=== PATIENT | male | born 1995 | race Caucasian/White ===

== ENCOUNTER 2019-06-04 09:25 | Inpatient (IN) | payer MEDICARE ==
[~2019-06-04] VITALS: Ht 167.6 cm; Wt 95.5 kg
[2019-06-04] MEDS ORDERED: ZOLOFT25 MG PO (09:31)
[2019-06-04] MEDS ORDERED: LITHIUM CARBON150 MG PO (09:31)
[2019-06-04] MEDS ORDERED: SEROQUEL300 MG PO (09:31)
[2019-06-04] MEDS ORDERED: LAMICTAL100 MG PO (09:32)
[2019-06-04] MEDS ORDERED: CATAPRES0.1 MG PO (09:32)
[2019-06-04] MEDS ORDERED: TRAZODONE HCL150 MG PO ×2 (09:32→16:12)
[2019-06-04 10:30] VITALS: BP 126/74
[2019-06-04 10:39] LABS: INR 1.01 (0.85-1.17); PROTIME 12.8 SECONDS (11.6-15.0)
[2019-06-04 10:40] LABS: APTT 30.3 SECONDS (22.8-39.4); CALC OSMOLALITY 279 mosm/kg (275-300); CALCIUM 9.7 mg/dL (8.5-10.1); CARBON DIOXIDE 30.5 mmol/L (21.0-32.0); CHLORIDE - SERUM 105 mmol/L (98-107); CREATININE - SERUM 1.1 mg/dL (0.6-1.3); GLUCOSE 109 mg/dL (74-106); POTASSIUM - SERUM 4.4 mmol/L (3.5-5.1); SODIUM 140 mmol/L (136-145); UREA NITROGEN 12 mg/dL (7-18); eGFR NON AFRICAN AMERICAN 87 mL/min (90-120)
[2019-06-04 10:57] LABS: ALBUMIN 3.7 g/dL (3.4-5.0); ALKALINE PHOSPHATASE 87 U/L (46-116); ALT (SGPT) 63 U/L (10-68); BILIRUBIN - TOTAL 0.62 mg/dL (0.2-1.3); CKMB 3.3 U/L (0.0-3.6); CREATINE KINASE 116 UL (21-232); PRO BNP 571 pg/mL (0-125); PROTEIN - SERUM 7.5 g/dL (6.4-8.2); TROPONIN-I < 0.017 ng/mL (0.000-0.060)
[2019-06-04 11:12] LABS: BASOPHILS 0.1 % (0-2); EOSINOPHILS 1.9 % (0-7); HEMATOCRIT 47.7 % (42.0-54.0); HEMOGLOBIN 15.1 g/dL (13.5-17.5); IMMATURE GRANULOCYTES 0.3 % (0-5); LYMPHOCYTES 12.6 % (15-50); MCH 30.9 pg (26.0-34.0); MCHC 31.7 g/dL (31.0-37.0); MCV 97.7 fL (80.0-100.0); MEAN PLATELET VOLUME 12.3 fL (7.4-10.4); MONOCYTES 6.9 % (2-11); NEUTROPHILS 78.2 % (40-80); PLATELET COUNT 185 10x3/uL (130-400); RBC 4.88 10x6/uL (4.20-6.10); WBC 12.7 10x3/uL (4.8-10.8)
[2019-06-04 11:30] VITALS: BP 128/74
[2019-06-04 13:00] VITALS: BP 128/72
--- NOTE | 2019-06-04 13:39 | NUR ---
SANDWICH TRAY PROVIDED.
--- NOTE | 2019-06-04 14:18 | MORECARE ---
CASE MANAGEMENT DISCHARGE SUMMARY PATIENT: RASHAWN EATON UNIT: [id number] ADM DATE: 06/04/19 AGE: 24 : 95 SEX: M ROOM/BED: D.2237 AUTHOR: EDWIN SOLARES PHYSICIAN: REFERRING PHYSICIAN: CAL MORGAN MD DATE OF SERVICE: 06/04/19 Discharge Plan Patient Name: RASHAWN EATON Facility: [facility]:[place] : 1995 Planned Disposition: Home Anticipated Discharge Date: 06/08/19 Discharge Date: Expected LOS: 4 Initial Reviewer: [email or web address] Initial Review Date: 06/04/2019 Generated: 06/04/19 3:18 pm DCPIA - Discharge Planning Initial Assessment Updated by [email or web address]: Danica Alaniz on 06/04/19 2:16 pm * Is the patient Alert and Oriented? Yes * How many steps to enter\exit or inside your home? * PCP Dr. Cheek @ [facility] * Pharmacy [facility] on [address] * Preadmission Environment Home with Family * ADLs Partial Dependent * Partial ADLs (Assistance needed) Bathing Medication Management * Equipment None * List name and contact numbers for known caregivers / representatives who currently or will assist patient after discharge: Romy Escobar - [facility] - [phone] * Verbal permission to speak to the caregivers and representatives has been obtained from the patient. Yes * Community resources currently utilized Other * Please name any agencies selected above. [facility] - Day treatment M-F 8-2 * Additional services required to return to the preadmission environment? No * Can the patient safely return to the preadmission environment? Yes * Has this patient been hospitalized within the prior 30 days at any hospital? No Patient Name: RASHAWN EATON Page [id number] at 1418 All edits/amendments must be made on the electronic document DICTATION DATE: 06/04/191417 PODIATRY PROFESSOR: JOANIE 06/04/191417 RPT#: [id number] DC DATE: STATUS: ADM IN [facility] [address] [place] [address] END OF REPORT
--- NOTE | 2019-06-04 14:25 | MORECARE ---
CASE MANAGEMENT DISCHARGE SUMMARY PATIENT: RASHAWN EATON UNIT: [id number] ADM DATE: 06/04/19 AGE: 24 : 95 SEX: M ROOM/BED: D.2237 AUTHOR: BECK,DOC PHYSICIAN: REFERRING PHYSICIAN: CAL MORGAN MD DATE OF SERVICE: 06/04/19 Discharge Plan Patient Name: RASHAWN EATON Facility: [facility]:[place] : 1995 Planned Disposition: Home Anticipated Discharge Date: 06/08/19 Discharge Date: Expected LOS: 4 Initial Reviewer: [email or web address] Initial Review Date: 06/04/2019 Generated: 06/04/19 3:25 pm DCP- Discharge Planning Updated by [email or web address]: Danica Alaniz on 06/04/19 1:[address] DC PLAN: Return home with his parents who care for him. ANTICIPATED DC NEEDS: Denied known dc needs. CM met with patient and his mother to complete initial dc planning assessment. CM educated patient's mother on the CM role and verbal consent given by patient to complete assessment. CM verified patient's address, phone number, and emergency contact phone numbers. Patient lives at home with his parents. He is Autistic and his mother is his primary caregiver. He goes to [facility] M-F 8a to 2p for day treatment. At discharge patient will return home with his mother and she feels this is a safe discharge. CM discussed availability of home health, rehab services, and medical equipment. She denied known discharge needs at this time. Transportation provider at discharge will be his mother. CM will continue to follow and will assist as needed with dc plans/needs. Danica Alaniz RN, [facility] DCPIA - Discharge Planning Initial Assessment Updated by [email or web address]: Danica Alaniz on 06/04/19 2:16 pm * Is the patient Alert and Oriented? Yes * How many steps to enter\exit or inside your home? * PCP Dr. Cheek @ [facility] * Pharmacy [facility] on [address] * Preadmission Environment Home with Family * ADLs Partial Dependent * Partial ADLs (Assistance needed) Bathing Medication Management * Equipment None * List name and contact numbers for known caregivers / representatives who currently or will assist patient after discharge: Romypaulino lama - [phone] * Verbal permission to speak to the caregivers and representatives has been obtained from the patient. Yes * Community resources currently utilized Other * Please name any agencies selected above. [facility] - Day treatment M-F 8-2 * Additional services required to return to the preadmission environment? No * Can the patient safely return to the preadmission environment? Yes * Has this patient been hospitalized within the prior 30 days at any hospital? No Last DP export: 06/04/19 1:18 Patient Name: RASHAWN EATON Page [id number] at 1425 All edits/amendments must be made on the electronic document DICTATION DATE: 06/04/191424 ASSISTANT WOMEN'S SOCCER COACH: JOANIE 06/04/191424 RPT#: [id number] DC DATE: STATUS: ADM IN [facility] [address] [place] [address] END OF REPORT
--- NOTE | 2019-06-04 14:38 | NUR ---
patient coughing up moderate amounts of blood tinged sputum - shown to dr. whitt.
--- NOTE | 2019-06-04 14:54 | NUR ---
voided 600 mls
[2019-06-04 18:02] VITALS: BP 148/79; Ht 167.6 cm; Wt 95.5 kg
[2019-06-04 19:30] VITALS: BP 141/73
[2019-06-05 00:30] VITALS: BP 112/44
[2019-06-05 05:19] VITALS: BP 108/52
[2019-06-05 06:33] LABS: APPEARANCE CLEAR (CLEAR); BILIRUBIN NEGATIVE (NEGATIVE); COLOR YELLOW (YELLOW); GLUCOSE 250 mg/dL (NEGATIVE); KETONE NEGATIVE (NEGATIVE); NITRITE NEGATIVE (NEGATIVE); PROTEIN NEGATIVE (NEGATIVE); SPECIFIC GRAVITY 1.005 (1.005-1.020); UROBILINOGEN NORMAL (NORMAL)
[2019-06-05 06:47] LABS: BASOPHILS 0 % (0-2); EOSINOPHILS 0 % (0-7); HEMATOCRIT 42.1 % (42.0-54.0); HEMOGLOBIN 13.4 g/dL (13.5-17.5); IMMATURE GRANULOCYTES 0.3 % (0-5); LYMPHOCYTES 6.4 % (15-50); MCH 30.6 pg (26.0-34.0); MCHC 31.8 g/dL (31.0-37.0); MCV 96.1 fL (80.0-100.0); MEAN PLATELET VOLUME 11.7 fL (7.4-10.4); MONOCYTES 4.5 % (2-11); NEUTROPHILS 88.8 % (40-80); PLATELET COUNT 171 10x3/uL (130-400); RBC 4.38 10x6/uL (4.20-6.10); RDW 12.8 % (11.5-14.5)
[2019-06-05 06:52] LABS: ALBUMIN 3.3 g/dL (3.4-5.0); ALKALINE PHOSPHATASE 80 U/L (46-116); ALT (SGPT) 67 U/L (10-68); BILIRUBIN - TOTAL 0.43 mg/dL (0.2-1.3); CALC OSMOLALITY 283 mosm/kg (275-300); CALCIUM 9.2 mg/dL (8.5-10.1); CARBON DIOXIDE 27.5 mmol/L (21.0-32.0); CHLORIDE - SERUM 106 mmol/L (98-107); CREATININE - SERUM 1.2 mg/dL (0.6-1.3); GLUCOSE 143 mg/dL (74-106); PROTEIN - SERUM 7.1 g/dL (6.4-8.2); SODIUM 141 mmol/L (136-145); UREA NITROGEN 14 mg/dL (7-18); eGFR NON AFRICAN AMERICAN 79 mL/min (90-120)
[2019-06-05 07:00] LABS: WBC 16.3 10x3/uL (4.8-10.8)
[2019-06-05 08:50] VITALS: BP 109/59; BP 141/92
--- NOTE | 2019-06-05 09:00 | NUR ---
ALERT AND ORIENTED TO SELF AND FAMILIAR FACES. NONPRODUCTIVE COUGH NOTED W TIH BREATH SOUNDS DIMINISHED X4 POSTERIOR. DENIES ANY PAIN OR DISCOMFORT. O2 2. N/C. IV TO LEFT THUMB WITH NO S/S OF INFECTION/INFILTRATION. UP ADLIB AND ENCOURAGED TO USE CALL LIGHT FOR ASSIST. WITH MOTHER IN ROOM.
[2019-06-05 12:28] VITALS: BP 103/47
[2019-06-05 16:58] VITALS: BP 114/59
--- NOTE | 2019-06-05 19:00 | NUR ---
BEDSIDE REPORT RECEIVED AND CARE OF PT ASSUMED. PT SITTING UP IN BED WATCHING TV. IV TO RIGHT FA PATENT WITH NS INFUSING AT KVO. O2 IN USE VIA NC AT 2L. WILL MONITOR FOR NEEDS.
[2019-06-05 19:30] VITALS: BP 111/64
--- NOTE | 2019-06-05 22:03 | NUR ---
HS MEDICATIONS GIVEN. WILL CONTINUE TO MONITOR FOR NEEDS.
[2019-06-06 00:30] VITALS: BP 110/70
--- NOTE | 2019-06-06 03:30 | NUR ---
PT APPEARS TO HAVE PRONOUNCED SLEEP APNEA. RT ASSESSED AND STATED THAT MD MAY WANT TO CONSIDER A SLEEP STUDY ON DISCHARGE.
[2019-06-06 04:57] VITALS: BP 105/68
[2019-06-06 06:38] LABS: BASOPHILS 0.1 % (0-2); EOSINOPHILS 0 % (0-7); HEMATOCRIT 44.7 % (42.0-54.0); HEMOGLOBIN 14.1 g/dL (13.5-17.5); IMMATURE GRANULOCYTES 0.4 % (0-5); LYMPHOCYTES 6.1 % (15-50); MCH 30.9 pg (26.0-34.0); MCHC 31.5 g/dL (31.0-37.0); MCV 97.8 fL (80.0-100.0); MEAN PLATELET VOLUME 11.5 fL (7.4-10.4); MONOCYTES 5.9 % (2-11); NEUTROPHILS 87.5 % (40-80); RBC 4.57 10x6/uL (4.20-6.10); RDW 13.4 % (11.5-14.5); WBC 19.6 10x3/uL (4.8-10.8)
[2019-06-06 06:42] LABS: PLATELET COUNT 267 10x3/uL (130-400)
[2019-06-06 07:33] LABS: CALC OSMOLALITY 286 mosm/kg (275-300); CALCIUM 9.1 mg/dL (8.5-10.1); CARBON DIOXIDE 26.8 mmol/L (21.0-32.0); CHLORIDE - SERUM 107 mmol/L (98-107); CREATININE - SERUM 1.1 mg/dL (0.6-1.3); GLUCOSE 180 mg/dL (74-106); POTASSIUM - SERUM 4.6 mmol/L (3.5-5.1); SODIUM 141 mmol/L (136-145); UREA NITROGEN 16 mg/dL (7-18); eGFR NON AFRICAN AMERICAN 87 mL/min (90-120)
--- NOTE | 2019-06-06 09:00 | NUR ---
ALERT AND ORIENTED TO SELF AND FAMILIAR FACES. PT NOTED TO HAVE SLEEP APNEA EPISODES DURING DAY WELL AT NIGHT. HRRR WITH IV TO RT. F/A INFUSING AT PRESCRIBED RATE WITH NO S/S OF INFECTION/INFILTRATION. NO PERIPHERAL EDEMA WITH LUNGS DIMINISHED TO BLQ POSTERIOR. ENCOURAGED TO USE CALL LIGHT FOR ASSIST.
[2019-06-06 09:12] VITALS: BP 106/72
[2019-06-06 13:04] VITALS: BP 137/87
--- NOTE | 2019-06-06 19:00 | NUR ---
BEDSIDE REPORT RECEIVED AND CARE OF PT ASSUMED. PT SITTING UP IN CHAIR AT THIS TIME VISITING WITH FAMILY MEMBER. IV TO RIGHT FA PATENT WITH NS INFUSING AT KVO. O2 IN USE VIA NC AT 2L. WILL MONITOR FOR NEEDS.
[2019-06-06 20:00] VITALS: BP 146/88
--- NOTE | 2019-06-06 20:26 | NUR ---
HS MEDICATIONS GIVEN. PROVIDED X3 LEMON LUMBEE SODAS PER REQUEST. WILL CONTINUE TO MONITOR FOR NEEDS.
[2019-06-07] VITALS: BP 159/72
[2019-06-07 04:00] VITALS: BP 121/77
[2019-06-07 08:36] VITALS: BP 162/70
--- NOTE | 2019-06-07 09:55 | NUR ---
PT ALERT AND ORIENTED TO SELF AND FAMILIAR FACES WITH FAMILY PRESENT. SLEEP APNEA NOTED WITH CR. JACOBSON AWARE OF CONDITION. FAMILY STRATES HE SLEPT BETTER SITTING UP IN CHAIR. LUNGS DIMINISHED TO BLQ POSTERIOR. 02 2L N/C. IV TO RT. F/A WITH NO S/S OF INFECTION/INFILTRATION. ENCOURAGED TO USE CALL LIGHT FOR ASSIST
[2019-06-07] MEDS ORDERED: VIBRAMYCIN 100100 MG PO (10:35)
[2019-06-07] MEDS ORDERED: OMNICEF300 MG PO (10:35)
[2019-06-07] MEDS ORDERED: ALBUTEROL2.5 MG/3 M INH (10:36)
[2019-06-07] MEDS ORDERED: SINGULAIR10 MG PO (10:37)
[2019-06-07] MEDS ORDERED: MUCINEX DM ER1 EAC1 PO (10:38)
[2019-06-07] MEDS ORDERED: PREDNISONE10 MG PO (10:40)
--- NOTE | 2019-06-07 11:10 | NUR ---
RX FOR ALBUTEROL [facility] CALLED TO [facility]-SPOKE WITH
--- NOTE | 2019-06-07 11:17 | NUR ---
SPOKE WITH ELIJAH ANDERSON APN. HE ADVISES NO FLU SHOT AT THIS TIME.
--- NOTE | 2019-06-07 11:24 | MORECARE ---
CASE MANAGEMENT DISCHARGE SUMMARY PATIENT: RASHAWN EATON UNIT: [id number] ADM DATE: 06/04/19 AGE: 24 : 95 SEX: M ROOM/BED: D.2237 AUTHOR: EDWIN SOLARES PHYSICIAN: REFERRING PHYSICIAN: CAL MORGAN MD DATE OF SERVICE: 06/07/19 Discharge Plan Patient Name: RASHAWN EATON Facility: [facility]:[place] : 1995 Planned Disposition: Home Anticipated Discharge Date: 06/08/19 Discharge Date: Expected LOS: 4 Initial Reviewer: [email or web address] Initial Review Date: 06/04/2019 Generated: 06/07/19 12:24 pm Comments DCP- Discharge Planning Updated by [email or web address]: Nafisa Banda on 06/07/19 10:[address] Patient Name: RASHAWN EATON Admission Status: ER Accout number: [id number] Admission Date: 06-04-2019 : 1995 Admission Diagnosis: Attending: CAL MORGAN Current LOS: 3 Anticipated DC Date: 06-08-2019 Planned Disposition: Home Primary Insurance: MEDICARE A & B Discharge Planning Comments: I SPOKE WITH PATIENT'S MOTHER ABOUT DC NEEDS. SHE STATES HE DOES NOT HAVE A NEBULIZER AT HOME. STATES WOULD LIKE [facility] [place] FOR NEBULIZER IF INSURANCE COVERS IT. I SPOKE WITH [facility] AND THEY ARE BRINGING HIM A NEBULIZER. CM TO FOLLOW AND ASSIST. Property Technician: Nafisa Banda DCP- Discharge Planning Updated by [email or web address]: Danica Alaniz on 06/04/19 1:[address] DC PLAN: Return home with his parents who care for him. ANTICIPATED DC NEEDS: Denied known dc needs. CM met with patient and his mother to complete initial dc planning assessment. CM educated patient's mother on the CM role and verbal consent given by patient to complete assessment. CM verified patient's address, phone number, and emergency contact phone numbers. Patient lives at home with his parents. He is Autistic and his mother is his primary caregiver. He goes to [facility] M-F 8a to 2p for day treatment. At discharge patient will return home with his mother and she feels this is a safe discharge. CM discussed availability of home health, rehab services, and medical equipment. She denied known discharge needs at this time. Transportation provider at discharge will be his mother. CM will continue to follow and will assist as needed with dc plans/needs. Danica Alaniz RN, [facility] DCPIA - Discharge Planning Initial Assessment Updated by [email or web address]: Danica Alaniz on 06/04/19 2:16 pm * Is the patient Alert and Oriented? Yes * How many steps to enter\exit or inside your home? * PCP Dr. Cheek @ [facility] * Pharmacy [facility] on [address] * Preadmission Environment Home with Family * ADLs Partial Dependent * Partial ADLs (Assistance needed) Bathing Medication Management * Equipment None * List name and contact numbers for known caregivers / representatives who currently or will assist patient after discharge: Romy Escobar - - [phone] * Verbal permission to speak to the caregivers and representatives has been obtained from the patient. Yes * Community resources currently utilized Other * Please name any agencies selected above. [facility] - Day treatment M-F 8-2 * Additional services required to return to the preadmission environment? No * Can the patient safely return to the preadmission environment? Yes * Has this patient been hospitalized within the prior 30 days at any hospital? No Coverage Notice Reviewer: [email or web address] Santhosh Banda Notice Issued Date-Time: 06/07/2019 11:21 Notice Type: IM Discharge Notice Notice Delivered To: Family Member Relationship to Patient: Radiology Scheduler Name: MOTHER Delivery Method: HAND - Hand Delivered Radha Days: Prior Verbal Notification: Recipient Understood Notice: Yes Recipient Signature: Yes Med Rec Note Co-signed by Attending: Coverage Notice Comment: Reviewer: [email or web address] Santhosh Banda Notice Issued Date-Time: 06/07/2019 11:21 Notice Type: Patient Choice Letter Notice Delivered To: Family Member Relationship to Patient: Radiology Scheduler Name: MOTHER Delivery Method: HAND - Hand Delivered Radha Days: Prior Verbal Notification: Recipient Understood Notice: Yes Recipient Signature: Med Rec Note Co-signed by Attending: Coverage Notice Comment: RICARDO JACOBS export: 06/04/19 1:26 Patient Name: RASHAWN EATON Page [id number] at 1124 All edits/amendments must be made on the electronic document DICTATION DATE: 06/07/19 1124 MERCHANDISER RETAIL REPRESENTATIVE: DM 06/07/19 1124 RPT#: [id number] DC DATE: STATUS: ADM IN [facility] [address] [place] [address] END OF REPORT
[2019-06-07 11:58] VITALS: BP 116/72
--- NOTE | 2019-06-07 12:32 | NUR ---
IV DISCONTINUED WITH FAMILY VERBGALIZEING UNDERSTANDING OF DISCHARGE INSTRUCTIONS. CME NEBULIZER HERE FOR PATINT TO TAKE HOME WITH INSTRUCTIONS GIVEN. STABLE AT TIME OF DISCHARGE.
--- NOTE | 2019-06-07 14:08 | MORECARE ---
CASE MANAGEMENT DISCHARGE SUMMARY PATIENT: RASHAWN EATON UNIT: [id number] ADM DATE: 06/04/19 AGE: 24 : 95 SEX: M ROOM/BED: D.2237 AUTHOR: EDWIN SOLARES PHYSICIAN: REFERRING PHYSICIAN: CAL MORGAN MD DATE OF SERVICE: 06/07/19 Discharge Plan Patient Name: RASHAWN EATON Facility: [facility]:[place] : 1995 Planned Disposition: Home Anticipated Discharge Date: 06/08/19 Discharge Date: 06/07/2019 Expected LOS: 4 Initial Reviewer: [email or web address] Initial Review Date: 06/04/2019 Generated: 06/07/19 3:08 pm Comments DCP- Discharge Planning Updated by [email or web address]: Nafisa Banda on 06/07/19 10:[address] Patient Name: RASHAWN EATON Admission Status: ER Accout number: [id number] Admission Date: 06-04-2019 : 1995 Admission Diagnosis: Attending: CAL MORGAN Current LOS: 3 Anticipated DC Date: 06-08-2019 Planned Disposition: Home Primary Insurance: MEDICARE A & B Discharge Planning Comments: I SPOKE WITH PATIENT'S MOTHER ABOUT DC NEEDS. SHE STATES HE DOES NOT HAVE A NEBULIZER AT HOME. STATES WOULD LIKE [facility] FOR NEBULIZER IF INSURANCE COVERS IT. I SPOKE WITH [facility] AND THEY ARE BRINGING HIM A NEBULIZER. CM TO FOLLOW AND ASSIST. Kilnman: Nafisa Banda DCP- Discharge Planning Updated by [email or web address]: Danica Alaniz on 06/04/19 1:[address] DC PLAN: Return home with his parents who care for him. ANTICIPATED DC NEEDS: Denied known dc needs. CM met with patient and his mother to complete initial dc planning assessment. CM educated patient's mother on the CM role and verbal consent given by patient to complete assessment. CM verified patient's address, phone number, and emergency contact phone numbers. Patient lives at home with his parents. He is Autistic and his mother is his primary caregiver. He goes to [facility] M-F 8a to 2p for day treatment. At discharge patient will return home with his mother and she feels this is a safe discharge. CM discussed availability of home health, rehab services, and medical equipment. She denied known discharge needs at this time. Transportation provider at discharge will be his mother. CM will continue to follow and will assist as needed with dc plans/needs. Danica Alaniz RN, [facility] DCPIA - Discharge Planning Initial Assessment Updated by [email or web address]: Danica Alaniz on 06/04/19 2:16 pm * Is the patient Alert and Oriented? Yes * How many steps to enter\exit or inside your home? * PCP Dr. Cheek @ [facility] * Pharmacy [facility] on [address] * Preadmission Environment Home with Family * ADLs Partial Dependent * Partial ADLs (Assistance needed) Bathing Medication Management * Equipment None * List name and contact numbers for known caregivers / representatives who currently or will assist patient after discharge: Romy Escobar - - [phone] * Verbal permission to speak to the caregivers and representatives has been obtained from the patient. Yes * Community resources currently utilized Other * Please name any agencies selected above. [facility] - Day treatment M-F 8-2 * Additional services required to return to the preadmission environment? No * Can the patient safely return to the preadmission environment? Yes * Has this patient been hospitalized within the prior 30 days at any hospital? No Coverage Notice Reviewer: [id number] Santhosh Banda Notice Issued Date-Time: 06/07/2019 11:21 Notice Type: IM Discharge Notice Notice Delivered To: Family Member Relationship to Patient: Digital Marketing Program Manager Name: MOTHER Delivery Method: HAND - Hand Delivered Radha Days: Prior Verbal Notification: Recipient Understood Notice: Yes Recipient Signature: Yes Med Rec Note Co-signed by Attending: Coverage Notice Comment: Reviewer: [email or web address] Santhosh Banda Notice Issued Date-Time: 06/07/2019 11:21 Notice Type: Patient Choice Letter Notice Delivered To: Family Member Relationship to Patient: Digital Marketing Program Manager Name: MOTHER Delivery Method: HAND - Hand Delivered Radha Days: Prior Verbal Notification: Recipient Understood Notice: Yes Recipient Signature: Med Rec Note Co-signed by Attending: Coverage Notice Comment: RICARDO JACOBS export: 06/07/19 10:24 Patient Name: RASHAWN EATON Page [phone] at 1408 All edits/amendments must be made on the electronic document DICTATION DATE: 06/07/191407 FUDGER: DM 06/07/191407 RPT#: [id number] DC DATE:06/07/19 STATUS: DIS IN [facility] [address] [place] [address] END OF REPORT
== END 2019-06-07 12:32 | disposition home or self-care (01) | DRG 193 ==
LOC: D.ER 09:25 → D.MS 13:28
PROVIDERS: Family Medicine; ADMIT Legal Medicine; ATTEND Legal Medicine
DX: J18.9 Pneumonia, unspecified organism (principal); J96.01 Acute respiratory failure with hypoxia; J45.901 Unspecified asthma with (acute) exacerbation; F84.0 Autistic disorder; R04.2 Hemoptysis; D72.829 Elevated white blood cell count, unspecified; K21.9 Gastro-esophageal reflux disease without esophagitis